=== PATIENT | male | born 1975 | race Caucasian/White ===

== ENCOUNTER 2020-08-27 17:40 | Emergency (ER) | payer BC, OTHER ==
[~2020-08-27 17:40] MED LIST: CYCLOBENZAPRINE10 MG PO; NORCO 5-325 TA1 EACH PO; PEPCID40 MG PO; PERCOCET 10-321 EACH PO; ZYRTEC10 MG PO
[2020-08-27] MEDS ORDERED: NAPROSYN500 MG PO (19:42)
[2020-08-27] MEDS ORDERED: CYCLOBENZAPRINE10 MG PO (19:42)
== END 2020-08-27 20:02 | disposition home or self-care (01) ==
LOC: ER1 17:40
DX: S46.911A Strain of unspecified muscle, fascia and tendon at shoulder and upper arm level, right arm, initial encounter (principal); V86.99XA Unspecified occupant of other special all-terrain or other off-road motor vehicle injured in nontraffic accident, initial encounter; Y92.830 Public park as the place of occurrence of the external cause
CPT/HCPCS: 73010; 73030; 96374; 99283; J1885

== ENCOUNTER → 2021-04-13 | Outpatient (CLI) | payer BC, OTHER ==
[~2021-04-13] MED LIST changes: +NAPROSYN500 MG PO
== END ==
LOC: KOH-I 09:19
DX: R31.0 Gross hematuria (principal)
CPT/HCPCS: 74176

== ENCOUNTER 2021-06-15 12:51 | Emergency (ER) | payer BC, OTHER ==
[2021-06-15 13:51] LABS: BORDETELLA PARAPERTUSSIS Not Detected (Not Detectd); BORDETELLA PERTUSSIS Not Detected (Not Detectd); CHLAMYDIA PNEUMONIAE Not Detected (Not Detectd); CORONAVIRUS HKU1 Not Detected (Not Detectd); CORONAVIRUS NL63 Not Detected (Not Detectd); CORONAVIRUS OC43 Not Detected (Not Detectd); CORONOAVIRUS 229E Not Detected (Not Detectd); HUMAN METAPNEUMOVIRUS Not Detected (Not Detectd); HUMAN RHINOVIRUS/ENTEROVIRUS Not Detected (Not Detectd); INFLUENZA A Not Detected (Not Detectd); INFLUENZA B Not Detected (Not Detectd); MYCOPLASMA PNEUMONIAE Not Detected (Not Detectd); PARAINFLUENZA VIRUS 1 Not Detected (Not Detectd); PARAINFLUENZA VIRUS 2 Not Detected (Not Detectd); PARAINFLUENZA VIRUS 3 Not Detected (Not Detectd); PARAINFLUENZA VIRUS 4 Not Detected (Not Detectd); RESPIRATORY SYNCYTIAL VIRUS Not Detected (Not Detectd)
[2021-06-15 14:02] LABS: HEMOGLOBIN 17.8 gm/dl (14.0-17.5); RED BLOOD COUNT 5.86 M/UL (4.20-5.50); WHITE BLOOD COUNT 16.2 K/UL (4.5-11.0)
[2021-06-15 14:29] LABS: BUN/CREATININE RATIO 21 (0-10)
[2021-06-15 15:38] LABS: SARS-CoV-2 NOT DETECTED (Not Detectd)
[2021-06-15] MEDS ORDERED: ZOFRAN 4 MG TAB4 MG PO (16:01)
== END 2021-06-15 16:32 | disposition home or self-care (01) ==
LOC: ER1 12:51
PROVIDERS: Preventive Medicine Occupational Medicine
DX: B34.9 Viral infection, unspecified (principal); E86.0 Dehydration; R07.9 Chest pain, unspecified; Z20.822 Contact with and (suspected) exposure to COVID-19
CPT/HCPCS: 36600; 71045; 80053; 82009; 82550; 82553; 82803; 83605; 83690; 83880; 84484; 85025; 85379; 85652; 86140; 87081; 87633; 87880; 93005; 96374; 96375; 99285; C9113; J1170; J2405